=== PATIENT | female | born 2000 | race Caucasian/White ===

== ENCOUNTER 2023-08-30 13:02 | Emergency (ER) | payer MEDICAID ==
[~2023-08-30] VITALS: Ht 152.4 cm; Wt 47.6 kg
[2023-08-30 13:10] VITALS: BP 105/66; TEMP 98.2
[2023-08-30] MEDS ORDERED: dexaMETHasone SOD PHOSPHATE 4 MG/ML VIAL ONE (13:28)
[2023-08-30] MEDS ORDERED: ACETAMINOPHEN ES 500 MG TABLET ONE (13:29)
[2023-08-30] MEDS: dexaMETHasone SOD PHOSPHATE 4 MG/ML VIAL MC ONE (13:35)
[2023-08-30] MEDS: ACETAMINOPHEN ES 500 MG TABLET PO ONE (13:35)
[2023-08-30] MEDS ORDERED: ACET-2605 PO (15:15)
[2023-08-30] MEDS ORDERED: AZIT250T13 PO (15:15)
[2023-08-30] MEDS ORDERED: IBUP-1955 PO (15:15)
[2023-08-30 15:23] VITALS: O2SAT 97
== END 2023-08-30 15:24 | disposition home or self-care (01) ==
LOC: ER 13:07
DX: J03.90 Acute tonsillitis, unspecified (principal)
CPT/HCPCS: 99283; 87070; 87880; J1100; 86403-TC